=== PATIENT | male | born 1990 | race Caucasian/White ===

== ENCOUNTER → 2017-05-04 | Outpatient (CLI) | payer BC ==
--- NOTE | 2017-05-04 14:06 | KCIC ---
MRI of the cervical spine without contrast 05/04/2017 CLINICAL HISTORY: Right-sided neck pain with decreased range of motion. TECHNIQUE: Unenhanced T1-weighted, T2-weighted and inversion recovery sagittal and gradient echo and T2-weighted axial images of the cervical spine were obtained. FINDINGS: Minimal lateral curvature of the cervical spine is seen convex to the right. There is straightening of the normal cervical lordosis. The morphology and signal characteristics of all the disks of the cervical spine are within normal limits. The marrow signal of the visualized bony structures is within normal limits. The cervical spinal cord is normal in morphology, position, and signal characteristics. On the axial images no significant degenerative changes are seen involving the cervical disc spaces. No area of significant central spinal canal or neural foraminal stenosis is seen. IMPRESSION: Negative study. Electronically signed by: Taran Reynaga MD (05/04/2017 2:02 PM)
== END | disposition home or self-care (01) ==
LOC: KCIC MRI 12:24
PROVIDERS: ATTEND Nurse Practitioner Family
DX: M47.892 Other spondylosis, cervical region (principal); M43.8X2 Other specified deforming dorsopathies, cervical region; M40.292 Other kyphosis, cervical region
CPT/HCPCS: 72141